=== PATIENT | male | born 1995 | race Asian ===

== ENCOUNTER 2018-03-01 13:39 | Emergency (ER) | payer OTHER ==
[~2018-03-01] VITALS: Ht 167.6 cm; Wt 69.1 kg
[2018-03-01 14:11] VITALS: BP 145/71; PULSE 72; TEMP 97.6
== END 2018-03-01 14:16 | disposition home or self-care (01) ==
LOC: COL.ER 13:39
DX: S30.860A Insect bite (nonvenomous) of lower back and pelvis, initial encounter (principal); W57.XXXA Bitten or stung by nonvenomous insect and other nonvenomous arthropods, initial encounter